=== PATIENT | male | born 1935 | race Caucasian/White ===

== ENCOUNTER 2016-12-13 17:00 | Emergency (ER) | payer OTHER, MEDICARE ==
[~2016-12-13 17:00] MED LIST: AMLODIPINE5 M1 PO; CAL-CITRATE200 MG PO; CENTRUM SILVER1 CTB PO; COQ10 IN OIL1 SGL PO; COZ50 PO; CRANBERRY400 MG PO; ESTER C1 TAB PO; FLO4 PO; GOOD SENSE ASPI81 M3 PO; METFORMIN ER500 M1 PO; MOVE FREE PO; OMEGA 31000 MG PO; PHARMASSURE SA160 MG PO; PRILOSEC20 MG PO; SYN15 PO; VITAMIN B COMPL PO; VITAMIN D32000 I2 PO
--- NOTE | 2016-12-14 01:17 | NUR ---
SEE DOWNTIME CHARTING
[2016-12-14 20:33] LABS: CHLORIDE SERUM 106 mmol/L (98-107); POTASSIUM SERUM 4.1 mmol/L (3.5-5.1); SODIUM SERUM 145 mmol/L (136-145)
[2016-12-14 20:34] LABS: ALBUMIN 3.8 g/dL (3.4-5.0); AST/SGOT 28 U/L (15-37); BILIRUBIN TOTAL 0.7 mg/dL (0.20-1.00); CALCIUM 8.9 mg/dL (8.5-10.1); CARBON DIOXIDE 29.5 mmol/L (21-32); CREATININE SERUM 1.1 mg/dL (0.7-1.3); GLUCOSE SERUM 115 mg/dL (74-106); TOTAL PROTEIN, SERUM 6.8 g/dL (6.4-8.2)
[2016-12-14 20:35] LABS: ALKALINE PHOSPHATASE 91 U/L (46-116); ALT/SGPT 44 U/L (16-63)
[2016-12-14 20:37] LABS: PLATELET COUNT 120 x10^3mcL (130-400); RED CELL DISTRIBUTION WIDTH 13.6 % (11.5-14.5)
[2016-12-14 20:38] LABS: BASOPHIL % 0.2 % (0-2)
== END 2016-12-13 20:10 | disposition left against medical advice (07) ==
LOC: ED 17:00 → DU 19:35
PROVIDERS: Family Medicine
DX: R07.9 Chest pain, unspecified (principal); I10 Essential (primary) hypertension; I25.810 Atherosclerosis of coronary artery bypass graft(s) without angina pectoris

== ENCOUNTER → 2017-12-24 | Outpatient (CLI) | payer OTHER, MEDICARE | END | disposition home or self-care (01) | LOC: CT 17:01 | PROC: B922ZZZ Computerized Tomography (CT Scan) of Paranasal Sinuses (ICD-10-PCS; principal; 2017-12-24) | PROC: BW2FZZZ Computerized Tomography (CT Scan) of Neck (ICD-10-PCS; 2017-12-24) | DX: J31.0 Chronic rhinitis (principal) ==

== ENCOUNTER → 2018-01-19 | Outpatient (CLI) | payer OTHER, MEDICARE | END | disposition home or self-care (01) | LOC: US 14:00 | PROC: B345ZZZ Ultrasonography of Bilateral Common Carotid Arteries (ICD-10-PCS; principal; 2018-01-19) | DX: I10 Essential (primary) hypertension (principal); R42 Dizziness and giddiness; I25.10 Atherosclerotic heart disease of native coronary artery without angina pectoris ==